=== PATIENT | male | born 1930 | race Caucasian/White ===

== ENCOUNTER → 2019-01-29 | Outpatient (CLI) | payer MEDICARE ==
--- NOTE | 2019-01-29 12:04 | PCVCIMAG ---
EXAM: BILATERAL RENAL ULTRASOUND AND BILATERAL RENAL DUPLEX INDICATION: Hypertension FINDINGS: Right kidney: Length measures 10.7 cm. No hydronephrosis or extensive renal scarring. Incidental note is made of a 3.3 cm benign cyst lower pole. Right renal duplex: Adequate technical quality. No sonographic evidence of renal artery stenosis. The aortic to renal artery ratio is 2.2. The renal vein is patent. Left kidney: Length measures 12.0 cm. No hydronephrosis or extensive renal scarring. 5.8 x 7.8 x 9.4 cm benign cyst mid left kidney. Left renal duplex: Adequate technical quality. No sonographic evidence of renal artery stenosis. The aortic to renal artery ratio is 1.0. The renal vein is patent. Bladder: No obvious abnormalities. IMPRESSION: No significant renal artery stenosis. No hydronephrosis bilaterally. LOC:[id number]
--- NOTE | 2019-01-29 15:28 | PCVCIMAG ---
APPROVED REPORT Study performed: 01/29/2019 08:21:09 EXAM: Comprehensive 2D, Doppler, and color-flow Echocardiogram Patient Location: Echo lab Status: routine BSA: 2.06 HR: 68 bpmBP: 142/76 mmHg Rhythm: NSR Other Information Study Quality: Adequate Risk Factors: Cardiac Risk Factors: HTN 2D Dimensions IVSd: 12.21 (7-11mm) LVDd: 45.07 mm PWd: 12.01 (7-11mm)Ascending Ao: 40.68 (22-36mm) LVDs: 30.84 (25-40mm) Left Atrium: 43.17 (27-40mm) Aortic Root: 34.70 mm LV Single Plane 4CH: 57.86 % LV Single Plane 2CH: 53.42 % Biplane EF: 56.0 % Volumes Left Atrial Volume (Systole) Single Plane 4CH: 124.14 mLSingle Plane 2CH: 96.52 mL LA ESV Index: 53.00 mL/m2 Aortic Valve AoV Peak Eddie.: 1.89 m/s AO Peak Gr.: 14.24 mmHgLVOT Max P.72 mmHg LVOT Max V: 1.09 m/s AI Vmax: 5.24 m/s AI [place]: 3.35 m/s2 AI PHT: 453.83 ms Mitral Valve E/A Ratio: 0.8 MV Decel. Time: 223.02 ms MV E Max Eddie.: 0.91 m/s MV A Eddie.: 1.13 m/s IVRT: 96.89 ms Pulmonary Valve PV Peak Eddie.: 1.16 m/sPV Peak Gr.: 5.41 mmHg Pulmonary Vein P Vein S: 0.33 m/sP Vein A: 0.37 m/s P Vein D: 0.58 m/sP Vein A Dur.: 145.3 msec P Vein S/D Ratio: 0.57 Tricuspid Valve TR Peak Eddie.: 3.06 m/s TR Peak Gr.: 37.51 mmHg Left Ventricle The left ventricle is normal size. There is normal LV segmental wall motion. Mild concentric left ventricular hypertrophy. Left ventricular systolic function is normal. The left ventricular ejection fraction is within the normal range. LVEF is 55-60%. Grade I - abnormal relaxation pattern. Right Ventricle The right ventricle is normal size. The right ventricular systolic function is normal. Atria Left atrium is moderately dilated. The right atrium size is normal. Aortic Valve The aortic valve is normal in structure. Mild aortic regurgitation. There is no aortic valvular stenosis. Mitral Valve The mitral valve is normal in structure. Mild mitral regurgitation. No evidence of mitral valve stenosis. Tricuspid Valve The tricuspid valve is normal in structure. Mild tricuspid regurgitation with PAP of 45 mmHg. Pulmonic Valve The pulmonary valve is normal in structure. Mild pulmonic regurgitation. Great Vessels The aortic root is normal in size. 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 IVC is normal in size and collapses >50% with inspiration. Pericardium There is no pericardial effusion. There is no pleural effusion. <Conclusion> The left ventricle is normal size. LVEF is 55-60%. The aortic valve is normal in structure. Mild aortic regurgitation. The mitral valve is normal in structure. Mild mitral regurgitation. The tricuspid valve is normal in structure. Mild tricuspid regurgitation with PAP of 45 mmHg. The pulmonary valve is normal in structure. Mild pulmonic regurgitation. There is no pericardial effusion.
== END | disposition home or self-care (01) ==
LOC: PCVCIMAG 08:27
PROVIDERS: ATTEND Internal Medicine
DX: I08.8 Other rheumatic multiple valve diseases (principal); I10 Essential (primary) hypertension; I25.10 Atherosclerotic heart disease of native coronary artery without angina pectoris
CPT/HCPCS: 76770; 93306; 93975